=== PATIENT | female | born 1980 | race Caucasian/White ===

== ENCOUNTER → 2018-02-24 | Outpatient (CLI) | payer OTHER ==
--- NOTE | 2018-02-24 13:52 | Diagnostic Imaging Report ---
EXAM: Transabdominal and Transvaginal Pelvic Ultrasound INDICATION: Right pelvic pain. IUD removed 4 weeks ago. Remote history of ovarian cyst rupture \S\RIGHT LOWER QUADRANT ABOMINAL PAIN COMPARISON: None TECHNIQUE: Grayscale transverse and sagittal transabdominal and transvaginal images were obtained of the pelvis. Transvaginal imaging was medically necessary to better evaluate the endometrium and the adnexa. CLINICAL HISTORY: 37 year old A0; last menstrual period: 02/15/2018. FINDINGS: Uterus Orientation: Normal Size: 10.0 x 3.9 x 5.9 cm, Normal Mass: None Cervix: Normal Endometrium: Thickness: 0.2 cm, Normal. Appearance: Homogeneous echotexture without focal thickening. Right ovary: Size: 3.2 x 2.0 x 1.7 cm Mass/Cyst: Small follicles Left ovary: Size: 2.0 x 1.6 x 1.7 cm Mass/Cyst: Small follicles Adnexa: Normal Cul-de-sac: No free fluid 3.7 x 1.0 x 1.0 cm hypoechoic lesion in the vaginal region of unknown significance. IMPRESSION: 3.7 x 1.0 x 1.0 cm hypoechoic lesion in the vaginal region of unknown significance. Small ovarian follicles. Signed by: Dr. Lucas Israel M.D. on 02/24/2018 1:48 PM
--- NOTE | 2018-02-24 13:55 | Diagnostic Imaging Report ---
EXAM: Complete Abdominal Ultrasound INDICATION: \S\RIGHT LOWER QUADRANT ABOMINAL PAIN COMPARISON: None. TECHNIQUE: Transverse and longitudinal images of the upper abdomen were obtained. FINDINGS: Liver: Size: 18.5 cm in the right midclavicular line, enlarged Appearance: Increased echogenicity, smooth contour Mass: No focal masses Spleen: Size: 9.3 cm in length, normal Echogenicity: Normal Mass: No focal masses Gallbladder: Stones/Sludge: None Wall: 0.2 cm Appearance: No wall thickening, pericholecystic fluid or hydrops. Sonographic Dutton's Sign: Negative Bile Ducts: Intrahepatic Ducts: No dilatation Extrahepatic Ducts: Common bile duct measures 0.4 cm, no dilatation Pancreas: Not well seen Kidneys: Length: Right 10.7 cm Left 9.8 cm Echogenicity: Normal Collecting System: No hydronephrosis Stone: None Cyst/Mass: None Vessels: Aorta: Visualized portions are normal Inferior Vena Cava: Visualized portions are normal Main Portal Vein: 1.2 cm, normal size with hepatopetal flow. Free Fluid: No ascites or pleural effusion IMPRESSION: Hepatomegaly with increased echogenicity in the liver could be due to fatty infiltration. No gallbladder stones and sludge or gallbladder wall thickening is seen. No ductal dilatation is seen. The pancreas is not well seen due to overlying bowel gas. Signed by: Dr. Lucas Israel M.D. on 02/24/2018 1:51 PM
== END ==
LOC: US 11:40
PROVIDERS: ATTEND Family Medicine
DX: R11.2 Nausea with vomiting, unspecified (principal); R10.31 Right lower quadrant pain
CPT/HCPCS: 76700; 76856